=== PATIENT | male | born 1945 | race Caucasian/White ===

== ENCOUNTER → 2023-09-20 02:04 | Outpatient (CLI) | payer MEDICARE, SELFPAY ==
--- NOTE | 2023-09-20 07:45 | DI.US_ITS ---
Exam(s) US THYROID EXAM: US THYROID CLINICAL HISTORY: 6 month left-sided nodule f/u, thyroid nodule, E04.1. TECHNIQUE: Ultrasound thyroid performed using standard protocol. COMPARISON: US US THYROID/NECK/HEAD from 02/24/2023 FINDINGS: ISTHMUS: 4 mm RIGHT LOBE: Size: 5.3 x 1.7 x 1.6 cm Echogenicity: Heterogeneous Vascularity: Normal. Nodules: None. LEFT LOBE: Size: 4.0 x 2.1 x 2.4 cm Echogenicity: Heterogeneous Vascularity: Normal. Nodules: Lower pole 3.7 x 2.6 by 2.5 centimeter solid, isoechoic, lobulated nodule without visible ec hogenic foci. It appears show extrathyroidal extension. Borders are difficult to discretely identif y making exact measurement inaccurate. The lesion appears roughly unchanged in size from prior. Tot al of 6 points, TR 4. OTHER FINDINGS: No adenopathy. IMPRESSION: No definite change in size or appearance of nodule at the mid to lower pole of the left lobe of the t hyroid. TR4. FNA recommended. DATA REPOSITORY:
== END ==
PROVIDERS: PCP Family Medicine; Visit Provider Registered Nurse Maternal Newborn
DX: E04.1 Nontoxic single thyroid nodule (principal)
CPT/HCPCS: 76536

== ENCOUNTER → 2023-09-26 01:15 | Outpatient (CLI) | payer MEDICARE, SELFPAY ==
--- NOTE | 2023-09-26 07:45 | DI.US_ITS ---
Exam(s) US NEEDLE LOCAL OTHER WO RAD EXAM: Left thyroid nodule, THYROID NODULE, E04.1 COMPARISON: No exams were available for comparison TECHNIQUE: Ultrasound performed using standard protocol. FINDINGS: Sonography was provided for Dr. Suresh during the performance of a thyroid biopsy. Please refer to the procedure report for complete details. DATA REPOSITORY:
--- NOTE | 2023-09-26 12:30 | PAPNONF_PTH ---
PATIENT: Richard Velasco LOC: [facility] U#:[id number] AGE/SX: 79/M ROOM: RE09/26/[address]: Pawan Suresh MD : 1945 BED: DIS: SPEC #: [id number] RECD: 09/26/23 13:00 STATUS: ALICE RERebecca #: [id number] RICHARD: 09/26/23 12:[address]: Pawan Suresh DEPT: [facility] Cytology RECD BY: Angela Castro ENTERED: 09/26/23 13:01 SP TYPE: RAJIV ALEJANDRO DR: Christa Carrera Tissues: 1 - BODY FLUID CYTO-FINE NEEDLE [facility] Procedures: BODY FLUID CYTO-FINE NEEDLE [facility]IR[facility] Comments: [id number] (PATH FNA CONSULT) (REFRIGERATED)
--- NOTE | 2023-09-26 12:54 | W.PROCNOTE ---
Date of service: 09/26/23 Time of Service: 12:54 Procedure Note Date of procedure: 09/26/23 Procedure: Ultrasound-guided FNA, left thyroid nodule, pathology present Surgeon/Proceduralist/Physician: Pawan Suresh Procedure Diagnosis: Left thyroid nodule Procedure Indications: Patient has a left-sided thyroid nodule with questionable extracapsular spread beyond the thyroid. Options were explained to the patient regarding further management. He elected undergo the above procedure. Consent was filled out and signed prior to the procedure. H&P was reviewed. There have been no significant changes. Patient wished to proceed. Procedure Description: The patient was positioned in the supine position with his neck slightly extended. Ultrasound was used to localize the thyroid nodule in the left inferior lobe and the patient was prepped and draped in appropriate fashion. 1% lidocaine with 1/100,000 epinephrine was injected in the skin and subcutaneous tissues overlying the nodule and then using ultrasound for guidance, a 25-gauge needle was passed into the thyroid nodule, and then handed to pathology to assess cellularity. Once adequate cellularity had been verified, 2 additional passes were made for potential Afirma testing. These were again done under ultrasound guidance. Following this, after ensuring adequate hemostasis, sterile dressing was applied. The patient was then allowed to sit, stand, and ambulate. His vital signs remained stable. He will remove the bandage in an hour. He will call with any signs of infection. He will call if he does not hear from me within 1 week with regard to pathology results. Further care will depend upon the findings. He may use ibuprofen or Tylenol for any discomfort. He had no further questions. He is comfortable with this plan.
== END ==
PROVIDERS: PCP Family Medicine; Visit Provider Otolaryngology
DX: E04.1 Nontoxic single thyroid nodule (principal)
CPT/HCPCS: 10005; 76942; 88104